=== PATIENT | female | born 1990 ===

== ENCOUNTER 2024-02-09 11:09 | Outpatient (CLI) | payer BC ==
--- NOTE | 2024-02-10 10:20 | Ultrasound Report ---
PROCEDURE: Soft Tissue Head or Neck INDICATIONS: HASHIMOTOS TECHNIQUE: Real-time scanning was performed of the thyroid gland, with image documentation. COMPARISON: None FINDINGS: Right: Thyroid lobe measures 5.5 x 1.8 x 2.1 cm. Left: Thyroid lobe measures 4.6 x 1.8 x 1.9 cm Isthmus: 0.8 cm thick. Echotexture: Heterogeneous. IMPRESSION: Heterogeneous enlarged appearance of the thyroid gland without distinctly identified nodules. Reviewed by: Nette Murguia MD on 02/10/2024 10:19 AM PDT Approved by: Nette Murguia MD on 02/10/2024 10:19 AM PDT Station ID: [id number]
== END 2024-02-09 11:10 | disposition home or self-care (01) ==
LOC: DI 11:09
PROVIDERS: ATTEND Internal Medicine
DX: E06.3 Autoimmune thyroiditis (principal)